=== PATIENT | female | born 1995 | race Caucasian/White ===

== ENCOUNTER 2020-01-28 18:09 | Emergency (ER) | payer BC | END 2020-01-28 23:07 | disposition left against medical advice (07) | LOC: DL.ED 18:09 | DX: Z53.21 Procedure and treatment not carried out due to patient leaving prior to being seen by health care provider (principal) ==

== ENCOUNTER 2020-08-04 02:14 | Emergency (ER) | payer BC, OTHER ==
[2020-08-04] MEDS ORDERED: MVI, Adult with Vitamin K 10 ML, Folic Acid 1 MG, Thiamine 100 MG in Lactated Ringers 1... IV ONE ×4 (02:20)
[2020-08-04] MEDS ORDERED: LORazepam 2 MG/ML SDV IVPUSH PRN (02:45)
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
[2020-08-04 02:56] LABS: ANION GAP 16.9 mEq/L (7-13); CHLORIDE,CL 102 mmol/L (98-107); SODIUM,NA 140 mmol/L (136-145)
[2020-08-04 02:58] LABS: ACETAMINOPHEN 0 ug/mL (10-30 (Therapeutic))
[2020-08-04] MEDS ORDERED: Ondansetron 4 MG/2 ML SDV IVPUSH ONE (03:15)
[2020-08-04] MEDS ORDERED: Sodium Chloride 0.9% 1,000 ML IV SCH (03:30)
[2020-08-04] MEDS ORDERED: Potassium Chloride 10 MEQ in Premix Bag 1 BAG IV ONE ×2 (03:31→03:32)
== END 2020-08-04 08:05 | disposition home or self-care (01) ==
LOC: DL.ED 02:14
DX: F10.129 Alcohol abuse with intoxication, unspecified (principal); Y90.8 Blood alcohol level of 240 mg/100 ml or more
CPT/HCPCS: 36415; 80053; 80143; 80179; 80305; 80307; 82150; 82550; 83690; 84703; 85025; 96365; 96366; 96367; 96375; 99284; J2060; J2405; J3411; J3480; J7030; J7120; J3490

== ENCOUNTER 2022-06-07 02:34 | Emergency (ER) | payer OTHER ==
[2022-06-07] MEDS ORDERED: Lidocaine 1% 10 ML MDV INJECT ONE (02:47)
[2022-06-07] MEDS ORDERED: Bacitracin Oint 1 GM U/D Packet TOP ONE (03:05)
[2022-06-07] MEDS ORDERED: Bacitracin Oint 1 GM U/D Packet ONE (03:14)
== END 2022-06-07 03:23 | disposition home or self-care (01) ==
LOC: DL.ED 02:34
DX: S61.210A Laceration without foreign body of right index finger without damage to nail, initial encounter (principal); W26.8XXA Contact with other sharp object(s), not elsewhere classified, initial encounter; Y92.009 Unspecified place in unspecified non-institutional (private) residence as the place of occurrence of the external cause
CPT/HCPCS: 12001; 99282

== ENCOUNTER 2023-04-16 07:55 | Inpatient (IN) | payer OTHER ==
[~2023-04-16 07:55] MED LIST: Acetaminophen 325 MG Tab PO PRN; Carboprost Tromethamine 250 MCG/1 ML Amp IM PRN; Lactated Ringers 1,000 ML IV SCH; Lidocaine 1% 30 ML SDV INJECT ONE; Methylergonovine 0.2 MG/1 ML Amp IM PRN; Misoprostol 400 MCG (4 X 100 MCG TAB) RECTAL PRN; Misoprostol 50 MCG (1/2 of 100 MCG) Tab VAG PRN; Ondansetron 4 MG/2 ML SDV IVPUSH PRN; Oxytocin/Normal Saline 30 UNIT/500 ML BAG IV SCH; Penicillin G Potassium 5 MILLUNITS in Sodium Chloride 0.9% 100 ML IV ONE; Phenylephrine HCl In 0.9% NaCl 1 MG/10 ML Syringe IVPUSH PRN; Ropivacaine 200 MG in Premix Bag 1 BAG EPIDUR SCH; Sodium Chloride 0.9% 10 ML Syringe FLUSH PRN; Tranexamic Acid 1,000 MG in Sodium Chloride 0.9% 100 ML IV PRN; ePHEDrine 50 MG/ML SDV IVPUSH PRN; fentaNYL 100 MCG/2 ML SDV IVPUSH PRN
[2023-04-16 08:29] LABS: HEMOGLOBIN 13.2 g/dL (12.0-16.0); MEAN CORPUSCULAR HEMOGLOBIN 30.8 pg (27.0-34.0); MEAN CORPUSCULAR HGB CONC 33.8 g/dL (33.0-35.0); MEAN CORPUSCULAR VOLUME 90.9 fL (80-100); RED BLOOD CELL COUNT 4.29 10^6/uL (4.2-5.4); WHITE BLOOD CELL COUNT,WBC 9.6 10^3/uL (5.0-10.0)
[2023-04-16] MEDS: Penicillin G Potassium 3 MILLUNITS in Sodium Chloride 0.9% 100 ML IV SCH ×3 (13:10→21:31)
[2023-04-16] MEDS: Lactated Ringers 1,000 ML IV SCH (13:12)
[2023-04-16] MEDS: Misoprostol 25 MCG (1/4 of 100 MCG) Tab VAG PRN ×2 (13:17→17:15)
[2023-04-16] MEDS: Sodium Chloride 0.9% 10 ML Syringe FLUSH SCH (17:23)
[2023-04-17] MEDS: Oxytocin/Normal Saline 30 UNIT/500 ML BAG IV SCH ×2 (00:23→12:11)
[2023-04-17] MEDS: Sodium Chloride 0.9% 10 ML Syringe FLUSH SCH ×2 (00:23→13:05)
[2023-04-17] MEDS: Penicillin G Potassium 3 MILLUNITS in Sodium Chloride 0.9% 100 ML IV SCH ×5 (01:39→18:26)
[2023-04-17] MEDS: Lactated Ringers 1,000 ML IV SCH ×2 (02:15→03:28)
[2023-04-17] MEDS ORDERED: fentaNYL 100 MCG/2 ML SDV ONE (02:17)
[2023-04-17] MEDS ORDERED: Bupivacaine 0.25% 10 ML SDV ONE (02:17)
[2023-04-17] MEDS ORDERED: ePHEDrine 50 MG/ML SDV IVPUSH PRN (02:43)
[2023-04-17] MEDS ORDERED: Phenylephrine HCl In 0.9% NaCl 1 MG/10 ML Syringe IVPUSH PRN (02:43)
[2023-04-17] MEDS ORDERED: Ropivacaine 200 MG in Premix Bag 1 BAG EPIDUR SCH (02:45)
[2023-04-17] MEDS ORDERED: Oxytocin 10 Units/1 ML SDV IM PRN (11:29)
[2023-04-17] MEDS ORDERED: Tranexamic Acid 1,000 MG in Sodium Chloride 0.9% 100 ML IV PRN (11:29)
[2023-04-17] MEDS ORDERED: Simethicone 80 MG Tab.Chew PO PRN (11:29)
[2023-04-17] MEDS ORDERED: Benzocaine/Menthol 20%-0.5% Spray 78 GM Cannister TOP PRN (11:29)
[2023-04-17] MEDS ORDERED: Misoprostol 400 MCG (4 X 100 MCG TAB) RECTAL PRN (11:29)
[2023-04-17] MEDS ORDERED: Sodium Chloride 0.9% 10 ML Syringe FLUSH PRN (11:29)
[2023-04-17] MEDS ORDERED: Witch Hazel Medicated Pads 100/Jar TOP PRN (11:29)
[2023-04-17] MEDS ORDERED: Carboprost Tromethamine 250 MCG/1 ML Amp IM PRN (11:29)
[2023-04-17] MEDS: Ibuprofen 800 MG Tab PO PRN ×2 (12:03→23:41)
[2023-04-17] MEDS: Docusate Sodium 100 MG Cap PO PRN (16:52)
[2023-04-18 06:34] LABS: HEMATOCRIT 35.5 % (37.0-47.0); HEMOGLOBIN 11.7 g/dL (12.0-16.0); MEAN CORPUSCULAR HEMOGLOBIN 30.5 pg (27.0-34.0); MEAN CORPUSCULAR VOLUME 92.4 fL (80-100); RED BLOOD CELL COUNT 3.84 10^6/uL (4.2-5.4); WHITE BLOOD CELL COUNT,WBC 13.6 10^3/uL (5.0-10.0)
[2023-04-18] MEDS: Docusate Sodium 100 MG Cap PO PRN ×2 (08:19→21:28)
[2023-04-18] MEDS: Ibuprofen 800 MG Tab PO PRN ×2 (08:19→21:27)
[2023-04-18] MEDS: Prenatal Multivitamin with Calcium/Folic Acid/Iron Tab PO SCH (08:19)
[2023-04-18] MEDS: Ferrous Sulfate 325 MG Tab PO SCH (08:20)
[2023-04-18] MEDS: Acetaminophen 325 MG Tab PO PRN (08:20)
[2023-04-19] MEDS: Ibuprofen 800 MG Tab PO PRN (08:06)
[2023-04-19] MEDS: Acetaminophen 325 MG Tab PO PRN (08:06)
[2023-04-19] MEDS: Ferrous Sulfate 325 MG Tab PO SCH (08:06)
[2023-04-19] MEDS: Prenatal Multivitamin with Calcium/Folic Acid/Iron Tab PO SCH (08:06)
[2023-04-19] MEDS: Docusate Sodium 100 MG Cap PO PRN (08:07)
== END 2023-04-19 10:23 | disposition home or self-care (01) | DRG 807 ==
LOC: DL.OB 07:55 → OBSVTOIN 04-17 10:29
PROVIDERS: ADMIT Family Medicine; ATTEND Family Medicine
PROC: 10E0XZZ Delivery of Products of Conception, External Approach (ICD-10-PCS; principal; 2023-04-17)
PROC: 3E0R3BZ Introduction of Anesthetic Agent into Spinal Canal, Percutaneous Approach (ICD-10-PCS; 2023-04-17)
PROC: 00HU33Z Insertion of Infusion Device into Spinal Canal, Percutaneous Approach (ICD-10-PCS; 2023-04-17)
PROC: 3E0P7VZ Introduction of Hormone into Female Reproductive, Via Natural or Artificial Opening (ICD-10-PCS; 2023-04-17)
DX: O48.0 Post-term pregnancy (principal); Z37.0 Single live birth; Z3A.40 40 weeks gestation of pregnancy; O99.02 Anemia complicating childbirth; O99.824 Streptococcus B carrier state complicating childbirth; O99.344 Other mental disorders complicating childbirth; F41.9 Anxiety disorder, unspecified
CPT/HCPCS: 01967; 36415; 51702; 59409; 85027; A9270-GY; J2405; J2540; J2590; J2795; J3490; J7120

== ENCOUNTER 2024-09-12 23:19 | Inpatient (IN) | payer OTHER ==
[2024-09-13] MEDS ORDERED: fentaNYL 100 MCG/2 ML SDV IVPUSH PRN (00:17)
[2024-09-13] MEDS ORDERED: Tranexamic Acid 1,000 MG in Sodium Chloride 0.9% 100 ML IV PRN ×2 (00:17→10:35)
[2024-09-13] MEDS ORDERED: Sodium Chloride 0.9% 10 ML Syringe FLUSH PRN ×2 (00:17→10:35)
[2024-09-13] MEDS ORDERED: Carboprost Tromethamine 250 MCG/1 ML Amp IM PRN ×2 (00:17→10:35)
[2024-09-13] MEDS ORDERED: Methylergonovine 0.2 MG/1 ML Amp IM PRN (00:17)
[2024-09-13] MEDS ORDERED: Nalbuphine HCl 10 MG/ 1ML Amp IM PRN (00:17)
[2024-09-13 00:41] LABS: HEMATOCRIT 39.1 % (37.0-47.0); HEMOGLOBIN 13.1 g/dL (12.0-16.0); MEAN CORPUSCULAR HEMOGLOBIN 30.9 pg (27.0-34.0); MEAN CORPUSCULAR HGB CONC 33.5 g/dL (33.0-35.0); MEAN CORPUSCULAR VOLUME 92.2 fL (80-100); RED BLOOD CELL COUNT 4.24 10^6/uL (4.2-5.4); WHITE BLOOD CELL COUNT,WBC 11.3 10^3/uL (5.0-10.0)
[2024-09-13] MEDS: Ondansetron 4 MG/2 ML SDV IVPUSH PRN (03:30)
[2024-09-13] MEDS: Lactated Ringers 1,000 ML IV ONE (03:30)
[2024-09-13] MEDS: Lactated Ringers 1,000 ML IV SCH (04:07)
[2024-09-13] MEDS: Oxytocin/Lactated Ringers 30 UNIT/500 ML BAG IV SCH (05:30)
[2024-09-13] MEDS ORDERED: Lidocaine 2% 20 ML MDV ONE (07:19)
[2024-09-13] MEDS ORDERED: Hydrocortisone 2.5% Crm 30 GM Tube TOP PRN (10:35)
[2024-09-13] MEDS ORDERED: Misoprostol 100 MCG Tab RECTAL PRN (10:35)
[2024-09-13] MEDS ORDERED: Simethicone 80 MG Tab.Chew PO PRN (10:35)
[2024-09-13] MEDS ORDERED: Acetaminophen 325 MG Tab PO PRN (10:35)
[2024-09-13] MEDS ORDERED: Oxytocin 10 Units/1 ML SDV IM PRN (10:35)
[2024-09-13] MEDS: Docusate Sodium 100 MG Cap PO PRN (13:38)
[2024-09-13] MEDS: Witch Hazel Medicated Pads 100/Jar TOP PRN (13:38)
[2024-09-13] MEDS: Ibuprofen 800 MG Tab PO SCH (13:38)
[2024-09-13] MEDS: Benzocaine/Menthol 20%-0.5% Spray 78 GM Cannister TOP PRN (13:39)
[2024-09-13] MEDS: Lidocaine 1% 30 ML SDV INJECT ONE (13:40)
[2024-09-13] MEDS: Acetaminophen 325 MG Tab PO PRN (17:03)
[2024-09-14] MEDS: Ferrous Sulfate 325 MG Tab PO SCH (07:48)
[2024-09-14] MEDS: Prenatal Multivitamin with Calcium/Folic Acid/Iron Tab PO SCH (07:48)
[2024-09-14] MEDS: Acetaminophen 325 MG Tab PO PRN (08:18)
[2024-09-14] MEDS ORDERED: fentaNYL 100 MCG/2 ML SDV IV ONE (14:59)
== END 2024-09-14 15:00 | disposition still patient (30) | DRG 807 ==
LOC: DL.OBCHECK 23:19 → DL.OB 09-13 00:17 → OBSVTOIN 09-13 10:16
PROVIDERS: ADMIT Family Medicine; ATTEND Family Medicine
PROC: 3E0R3BZ Introduction of Anesthetic Agent into Spinal Canal, Percutaneous Approach (ICD-10-PCS; principal; 2024-09-13)
PROC: 10E0XZZ Delivery of Products of Conception, External Approach (ICD-10-PCS; principal; 2024-09-13)
PROC: 10907ZC Drainage of Amniotic Fluid, Therapeutic from Products of Conception, Via Natural or Artificial Opening (ICD-10-PCS; principal; 2024-09-13)
DX: O99.02 Anemia complicating childbirth (principal); Z37.0 Single live birth; O99.344 Other mental disorders complicating childbirth; Z3A.38 38 weeks gestation of pregnancy; Z98.890 Other specified postprocedural states
CPT/HCPCS: 36415; 51702; 59409; 85027; A9270-GY; J2405; J2590; J3010; J7120